=== PATIENT | male | born 1960 | race African-American/Black ===

== ENCOUNTER 2020-07-23 12:36 | Inpatient (IN) | payer MEDICARE, MEDICAID ==
[~2020-07-23] VITALS: Ht 195.6 cm; Wt 108.4 kg
[2020-07-23 14:23] LABS: MEAN CORPUSCULAR HEMOGLOBIN 19.3 pg (28.0-32.0); MEAN CORPUSCULAR VOLUME 67.5 fL (80.0-94.0); MEAN PLATELET VOLUME 8.5 fl (7.4-10.4); PLATELET 365 x1000/uL (130-400); RED BLOOD CELL COUNT 2.64 mill/uL (4.7-6.1); RED CELL DISTRIBUTION WIDTH 21.6 % (11.6-14.6)
[2020-07-23 14:30] LABS: HEMATOCRIT. 17.8 % (42.0-52.0); HEMOGLOBIN. 5.1 g/dL (14.0-18.0)
[2020-07-23 14:34] LABS: CHLORIDE 109 mEq/L (98-107)
[2020-07-23 14:47] LABS: NUCLEATED RED BLOOD CELLS 3 /100 WBC
[2020-07-23 14:51] LABS: PLATELET ESTIMATE NORMAL
[2020-07-23] MEDS ORDERED: HYDROCODONE/ACETAMINOPHEN 5/325MG TABLET PO SCH (15:15)
[2020-07-23] MEDS ORDERED: POTASSIUM CHLORIDE 20MEQ TABLET SR PO ONE (15:15)
[2020-07-23 18:33] VITALS: BP 139/66
[2020-07-23] MEDS ORDERED: ZOLPIDEM TARTRATE 5MG TABLET PO PRN (18:45)
[2020-07-23] MEDS ORDERED: CLONIDINE 0.1MG TABLET PO PRN (18:45)
[2020-07-23] MEDS ORDERED: DIPHENHYDRAMINE 50MG/ML VIAL IV PRN (18:45)
[2020-07-23] MEDS ORDERED: GUAIFENESIN 200MG/10ML SUGAR FREE UDC PO PRN (18:45)
[2020-07-23] MEDS ORDERED: ONDANSETRON HCL 4MG/2ML INJ IV PRN (18:45)
[2020-07-23] MEDS ORDERED: ACETAMINOPHEN 325MG TABLET PO PRN (18:45)
[2020-07-23 19:19] LABS: PHOSPHORUS 3.3 mg/dL (2.5-4.9)
[2020-07-23 19:24] LABS: TOTAL IRON BINDING CAPACITY 276 ug/dL (250-450)
[2020-07-23 20:00] VITALS: BP 149/79
[2020-07-23] MEDS: ENOXAPARIN 120MG/0.8ML SYR SUBCUT SCH ×2 (20:00→20:21)
[2020-07-23] MEDS: POTASSIUM CHLORIDE 20MEQ TABLET SR PO SCH ×3 (20:21→22:43)
[2020-07-23] MEDS: IRON SUCROSE COMPLEX 100 MG/5 ML ML IV SCH (20:22)
[2020-07-23] MEDS: CARVEDILOL 6.25 MG TABLET PO SCH (20:22)
[2020-07-23] MEDS: EPOETIN ALFA-EPBX 10,000 UNIT/ML VIAL SUBCUT NR ×2 (20:22→21:20)
[2020-07-23] MEDS: SODIUM CHLORIDE 0.9% INJ 3ML FLUSH IVF SCH (20:23)
[2020-07-23] MEDS ORDERED: MAGNESIUM 4 G PREMIX 100 ML IV SCH (21:00)
[2020-07-23] MEDS: HYDROCODONE/ACETAMINOPHEN 5/325MG TABLET PO PRN (21:45)
[2020-07-23] MEDS ORDERED: COR6 PO (22:15)
[2020-07-23] MEDS ORDERED: FURO80TA87 PO (22:15)
[2020-07-24] VITALS: BP 137/82
[2020-07-24 04:00] VITALS: BP 117/71
[2020-07-24] MEDS: SODIUM CHLORIDE 0.9% INJ 3ML FLUSH IVF SCH ×3 (06:13→20:41)
[2020-07-24] MEDS: FUROSEMIDE 40MG/4ML VIAL IVP SCH ×2 (06:13→17:25)
[2020-07-24 08:00] VITALS: BP 145/82
[2020-07-24] MEDS: HYDROCODONE/ACETAMINOPHEN 5/325MG TABLET PO PRN ×2 (08:42→17:25)
[2020-07-24] MEDS: CARVEDILOL 6.25 MG TABLET PO SCH ×2 (08:44→20:41)
[2020-07-24] MEDS: LOSARTAN POTASSIUM 25 MG TABLET PO SCH (08:44)
[2020-07-24] MEDS: METOLAZONE 10MG TABLET PO SCH (08:44)
[2020-07-24 08:45] LABS: INR 1.3; MEAN CORPUSCULAR HEMOGLOBIN 19.4 pg (28.0-32.0); MEAN CORPUSCULAR VOLUME 67.4 fL (80.0-94.0); MEAN PLATELET VOLUME 8.5 fl (7.4-10.4); PLATELET 310 x1000/uL (130-400); PROTHROMBIN TIME 13.4 sec (9.6-11.0); RED BLOOD CELL COUNT 2.55 mill/uL (4.7-6.1); RED CELL DISTRIBUTION WIDTH 21.7 % (11.6-14.6)
[2020-07-24 08:47] LABS: PHOSPHORUS 3.6 mg/dL (2.5-4.9)
[2020-07-24 08:59] LABS: HEMATOCRIT. 17.2 % (42.0-52.0); HEMOGLOBIN. 4.9 g/dL (14.0-18.0)
[2020-07-24 12:00] VITALS: BP 130/80
[2020-07-24 14:14] LABS: NUCLEATED RED BLOOD CELLS 2 /100 WBC; PLATELET ESTIMATE NORMAL
[2020-07-24 16:00] VITALS: BP 139/82
[2020-07-24] MEDS ORDERED: MAGNESIUM 2 G PREMIX 50 ML IV NR (17:00)
[2020-07-24] MEDS ORDERED: ALBUMIN HUMAN 25GM/100ML (25%) IV NR ×2 (18:00→20:00)
[2020-07-24 20:00] VITALS: BP 116/73
[2020-07-24] MEDS: IRON SUCROSE COMPLEX 100 MG/5 ML ML IV SCH (20:41)
[2020-07-24] MEDS ORDERED: EPOETIN ALFA-EPBX 10,000 UNIT/ML VIAL SUBCUT NR (21:00)
[2020-07-25] VITALS: BP 136/82
[2020-07-25 04:00] VITALS: BP 147/80
[2020-07-25 06:07] LABS: MEAN CORPUSCULAR HEMOGLOBIN 19.4 pg (28.0-32.0); MEAN CORPUSCULAR VOLUME 68.4 fL (80.0-94.0); MEAN PLATELET VOLUME 8.2 fl (7.4-10.4); PLATELET 317 x1000/uL (130-400); RED BLOOD CELL COUNT 2.63 mill/uL (4.7-6.1); RED CELL DISTRIBUTION WIDTH 21.4 % (11.6-14.6)
[2020-07-25 06:31] LABS: HEMOGLOBIN. 5.1 g/dL (14.0-18.0)
[2020-07-25] MEDS: SODIUM CHLORIDE 0.9% INJ 3ML FLUSH IVF SCH ×3 (07:29→21:16)
[2020-07-25 08:00] VITALS: BP 145/78
[2020-07-25] MEDS: FUROSEMIDE 40MG/4ML VIAL IVP SCH ×2 (08:04→17:16)
[2020-07-25] MEDS: LOSARTAN POTASSIUM 25 MG TABLET PO SCH (09:01)
[2020-07-25] MEDS: CARVEDILOL 6.25 MG TABLET PO SCH ×2 (09:01→21:16)
[2020-07-25] MEDS: METOLAZONE 10MG TABLET PO SCH (09:01)
[2020-07-25 12:00] VITALS: BP 124/71
[2020-07-25] MEDS ORDERED: MAGNESIUM 1 G PREMIX 100 ML IV NR (12:00)
[2020-07-25] MEDS: POTASSIUM CHLORIDE 20MEQ TABLET SR PO SCH ×2 (12:04→21:15)
[2020-07-25 13:54] LABS: NUCLEATED RED BLOOD CELLS 5 /100 WBC
[2020-07-25 13:55] LABS: PLATELET ESTIMATE NORMAL
[2020-07-25] MEDS ORDERED: EPOETIN ALFA-EPBX 10,000 UNIT/ML VIAL SUBCUT SCH (14:30)
[2020-07-25 16:00] VITALS: BP 125/74
[2020-07-25 20:00] VITALS: BP 134/80
[2020-07-25] MEDS: IRON SUCROSE COMPLEX 100 MG/5 ML ML IV SCH (21:15)
[2020-07-26] VITALS: BP 137/85
[2020-07-26 04:00] VITALS: BP 138/70
[2020-07-26] MEDS: POTASSIUM CHLORIDE 20MEQ TABLET SR PO SCH ×3 (06:30→21:24)
[2020-07-26] MEDS: SODIUM CHLORIDE 0.9% INJ 3ML FLUSH IVF SCH ×3 (06:30→21:24)
[2020-07-26] MEDS: FUROSEMIDE 40MG/4ML VIAL IVP SCH (06:30)
[2020-07-26 07:03] LABS: MEAN CORPUSCULAR HEMOGLOBIN 19.2 pg (28.0-32.0); MEAN CORPUSCULAR VOLUME 68.1 fL (80.0-94.0); MEAN PLATELET VOLUME 8.7 fl (7.4-10.4); PLATELET 326 x1000/uL (130-400); RED BLOOD CELL COUNT 2.43 mill/uL (4.7-6.1); RED CELL DISTRIBUTION WIDTH 21.3 % (11.6-14.6)
[2020-07-26 07:17] LABS: HEMATOCRIT. 16.6 % (42.0-52.0); HEMOGLOBIN. 4.7 g/dL (14.0-18.0)
[2020-07-26 08:10] VITALS: BP 129/80
[2020-07-26 09:08] LABS: IMMUNOGLOBULIN A 591 mg/dL (90-386); IMMUNOGLOBULIN G 1129 mg/dL (603-1613); IMMUNOGLOBULIN M 63 mg/dL (20-172)
[2020-07-26] MEDS: METOLAZONE 10MG TABLET PO SCH (09:27)
[2020-07-26] MEDS: CARVEDILOL 6.25 MG TABLET PO SCH ×2 (09:27→21:24)
[2020-07-26] MEDS: LOSARTAN POTASSIUM 25 MG TABLET PO SCH (09:28)
[2020-07-26 11:09] LABS: NUCLEATED RED BLOOD CELLS 14 /100 WBC; PLATELET ESTIMATE NORMAL
[2020-07-26 12:11] VITALS: BP 124/77
[2020-07-26 15:52] VITALS: BP 138/71
[2020-07-26] MEDS: FUROSEMIDE 100MG/10ML VIAL IVP SCH (16:25)
[2020-07-26 20:00] VITALS: BP 130/81
[2020-07-27] VITALS: BP 145/73
[2020-07-27 04:00] VITALS: BP 133/78
[2020-07-27] MEDS: SODIUM CHLORIDE 0.9% INJ 3ML FLUSH IVF SCH ×3 (06:33→22:00)
[2020-07-27] MEDS: FUROSEMIDE 100MG/10ML VIAL IVP SCH ×2 (06:33→18:51)
[2020-07-27] MEDS: POTASSIUM CHLORIDE 20MEQ TABLET SR PO SCH ×3 (06:33→22:00)
[2020-07-27 06:49] LABS: MEAN CORPUSCULAR HEMOGLOBIN 20.1 pg (28.0-32.0); MEAN CORPUSCULAR VOLUME 68.8 fL (80.0-94.0); MEAN PLATELET VOLUME 8.6 fl (7.4-10.4); RED BLOOD CELL COUNT 2.46 mill/uL (4.7-6.1); RED CELL DISTRIBUTION WIDTH 21.8 % (11.6-14.6)
[2020-07-27 07:53] VITALS: BP 134/86
[2020-07-27 08:14] LABS: PHOSPHORUS 3.9 mg/dL (2.5-4.9)
[2020-07-27] MEDS: LOSARTAN POTASSIUM 25 MG TABLET PO SCH ×2 (09:00→11:01)
[2020-07-27] MEDS: METOLAZONE 10MG TABLET PO SCH ×2 (09:00→11:01)
[2020-07-27] MEDS: CARVEDILOL 6.25 MG TABLET PO SCH ×3 (09:00→21:00)
[2020-07-27 11:30] VITALS: BP 126/82
[2020-07-27 14:26] LABS: NUCLEATED RED BLOOD CELLS 16 /100 WBC
[2020-07-27 14:30] LABS: PLATELET ESTIMATE NORMAL
[2020-07-27 14:31] LABS: PLATELET 316 x1000/uL (130-400)
[2020-07-27 16:34] VITALS: BP 131/77
[2020-07-27 20:00] VITALS: BP 127/86
[2020-07-28] VITALS: BP 134/87
[2020-07-28 04:00] VITALS: BP 134/89
[2020-07-28] MEDS: FUROSEMIDE 100MG/10ML VIAL IVP SCH ×2 (06:47→17:18)
[2020-07-28] MEDS: SODIUM CHLORIDE 0.9% INJ 3ML FLUSH IVF SCH ×3 (06:51→21:33)
[2020-07-28] MEDS: POTASSIUM CHLORIDE 20MEQ TABLET SR PO SCH ×3 (06:53→21:32)
[2020-07-28 08:00] VITALS: BP 122/75
[2020-07-28] MEDS: METOLAZONE 10MG TABLET PO SCH (09:22)
[2020-07-28] MEDS: CARVEDILOL 6.25 MG TABLET PO SCH ×2 (09:22→21:32)
[2020-07-28] MEDS: LOSARTAN POTASSIUM 25 MG TABLET PO SCH (09:22)
[2020-07-28 12:00] VITALS: BP 136/76
[2020-07-28 16:00] VITALS: BP 124/74
[2020-07-28 20:00] VITALS: BP 124/88
[2020-07-29] VITALS: BP 125/75
[2020-07-29 04:00] VITALS: BP 124/76
[2020-07-29] MEDS: ACETAMINOPHEN 325MG TABLET PO PRN (04:35)
[2020-07-29] MEDS: FUROSEMIDE 100MG/10ML VIAL IVP SCH ×2 (06:33→10:18)
[2020-07-29] MEDS: POTASSIUM CHLORIDE 20MEQ TABLET SR PO SCH (06:33)
[2020-07-29] MEDS: SODIUM CHLORIDE 0.9% INJ 3ML FLUSH IVF SCH ×3 (06:34→21:08)
[2020-07-29 07:50] LABS: MEAN CORPUSCULAR HEMOGLOBIN 20.2 pg (28.0-32.0); MEAN CORPUSCULAR VOLUME 70.4 fL (80.0-94.0); MEAN PLATELET VOLUME 8.6 fl (7.4-10.4); PLATELET 310 x1000/uL (130-400); RED BLOOD CELL COUNT 2.58 mill/uL (4.7-6.1); RED CELL DISTRIBUTION WIDTH 21.3 % (11.6-14.6)
[2020-07-29 08:00] VITALS: BP 120/74
[2020-07-29 08:01] LABS: PHOSPHORUS 3.6 mg/dL (2.5-4.9)
[2020-07-29 08:23] LABS: HEMATOCRIT. 18.1 % (42.0-52.0); HEMOGLOBIN. 5.2 g/dL (14.0-18.0)
[2020-07-29] MEDS: CARVEDILOL 6.25 MG TABLET PO SCH ×2 (10:18→21:07)
[2020-07-29] MEDS: METOLAZONE 10MG TABLET PO SCH (10:19)
[2020-07-29] MEDS: LOSARTAN POTASSIUM 25 MG TABLET PO SCH (10:19)
[2020-07-29 12:00] VITALS: BP 114/72
[2020-07-29] MEDS ORDERED: BENZONATATE 100MG CAPSULE PO PRN (15:45)
[2020-07-29 16:00] VITALS: BP 113/78
[2020-07-29] MEDS ORDERED: MAGNESIUM 2 G PREMIX 50 ML IV NR (16:00)
[2020-07-29 16:21] LABS: PLATELET ESTIMATE NORMAL
[2020-07-29] MEDS: FERROUS SULFATE 325MG TABLET PO SCH (18:40)
[2020-07-29 20:00] VITALS: BP 131/63
[2020-07-29] MEDS: FUROSEMIDE 40MG TABLET PO SCH (21:08)
[2020-07-29] MEDS: GUAIFENESIN 600MG ER TABLET PO SCH (21:08)
[2020-07-30] VITALS (7 sets, daily range): BP systolic 118–138; BP diastolic 56–90
[2020-07-30] MEDS: SODIUM CHLORIDE 0.9% INJ 3ML FLUSH IVF SCH ×3 (06:17→22:51)
[2020-07-30] MEDS: FUROSEMIDE 40MG TABLET PO SCH ×2 (09:43→21:44)
[2020-07-30] MEDS: LOSARTAN POTASSIUM 25 MG TABLET PO SCH (09:43)
[2020-07-30] MEDS: FERROUS SULFATE 325MG TABLET PO SCH ×3 (09:43→19:19)
[2020-07-30] MEDS: CARVEDILOL 6.25 MG TABLET PO SCH ×2 (09:43→21:44)
[2020-07-30] MEDS: GUAIFENESIN 600MG ER TABLET PO SCH ×2 (09:43→21:45)
[2020-07-30] MEDS: METOLAZONE 10MG TABLET PO SCH (09:43)
[2020-07-30] MEDS: POTASSIUM CHLORIDE 20MEQ TABLET SR PO SCH (09:43)
[2020-07-31] VITALS: BP 127/83
[2020-07-31 04:00] VITALS: BP 121/85
[2020-07-31] MEDS: SODIUM CHLORIDE 0.9% INJ 3ML FLUSH IVF SCH (05:51)
[2020-07-31 08:28] VITALS: BP 122/76
[2020-07-31] MEDS: POTASSIUM CHLORIDE 20MEQ TABLET SR PO SCH (08:52)
[2020-07-31] MEDS: LOSARTAN POTASSIUM 25 MG TABLET PO SCH (08:52)
[2020-07-31] MEDS: GUAIFENESIN 600MG ER TABLET PO SCH (08:52)
[2020-07-31] MEDS: FERROUS SULFATE 325MG TABLET PO SCH ×2 (08:52→12:49)
[2020-07-31] MEDS: FUROSEMIDE 40MG TABLET PO SCH (08:53)
[2020-07-31] MEDS: METOLAZONE 10MG TABLET PO SCH (08:53)
[2020-07-31] MEDS: CARVEDILOL 6.25 MG TABLET PO SCH (08:53)
[2020-07-31] MEDS: ACETAMINOPHEN 325MG TABLET PO PRN (09:02)
[2020-07-31 11:46] VITALS: BP 125/74
[2020-07-31 16:13] VITALS: BP 124/70
== END 2020-07-31 17:40 | DRG 291 ==
LOC: ER 12:48 → 6WST 15:11 → ENRESERV 15:44
PROVIDERS: ADMIT Internal Medicine; ATTEND Internal Medicine
DX: I50.23 Acute on chronic systolic (congestive) heart failure (principal); E43 Unspecified severe protein-calorie malnutrition; I48.20 Chronic atrial fibrillation, unspecified; J91.8 Pleural effusion in other conditions classified elsewhere; N18.4 Chronic kidney disease, stage 4 (severe); D63.8 Anemia in other chronic diseases classified elsewhere; E66.9 Obesity, unspecified; E87.6 Hypokalemia; Z20.828 Contact with and (suspected) exposure to other viral communicable diseases; Z82.49 Family history of ischemic heart disease and other diseases of the circulatory system; Z99.2 Dependence on renal dialysis; Z68.28 Body mass index [BMI] 28.0-28.9, adult; Z79.899 Other long term (current) drug therapy; E61.1 Iron deficiency
CPT/HCPCS: 36415; 71045; 76770; 80048; 80053; 82575; 82728; 82784; 83540; 83550; 83735; 83880; 84100; 84156; 84484; 85025; 86160; 86334; 87426; 93306; 93970; 97162; 99285; J0885; J1650; J1940; J3475; J7040; P9047